=== PATIENT | male | born 1975 | race Caucasian/White ===

== ENCOUNTER 2016-11-30 14:55 | Inpatient (IN) | payer OTHER ==
[2016-11-30] MEDS ORDERED: VALIUM 2 MG TAB2 MG PO (17:36)
[2016-11-30] MEDS ORDERED: MULTI-VITAMIN1 EACH PO (17:37)
[2016-11-30] MEDS ORDERED: VISTARIL25 MG PO (17:38)
[2016-11-30] MEDS ORDERED: REMERON15 M1 PO (17:38)
[2016-11-30] MEDS ORDERED: METFORMIN HCL500 M1 PO (17:38)
[2016-11-30] MEDS ORDERED: BENADRYL25 MG PO (17:39)
[2016-11-30 17:40] LABS: HEMOGLOBIN 12.6 gm/dl (14.0-17.5); RED BLOOD COUNT 4.24 M/UL (4.20-5.50)
[2016-11-30] MEDS ORDERED: PAROXETINE HCL30 MG PO (17:40)
[2016-11-30] MEDS ORDERED: SEROQUEL200 MG PO (17:43)
[2016-11-30] MEDS ORDERED: TOPAMAX50 MG PO (17:44)
[2016-11-30] MEDS ORDERED: TRAZODONE HCL100 MG PO (17:50)
[2016-11-30] MEDS ORDERED: KEPPRA500 MG PO (17:51)
[2016-11-30] MEDS ORDERED: KEPPRA1000 MG PO (17:51)
[2016-11-30] MEDS ORDERED: REQUIP3 MG PO (17:52)
[2016-11-30] MEDS ORDERED: ONFI10 MG PO ×2 (17:53)
[2016-11-30] MEDS ORDERED: ZANTAC 150 MG150 MG PO (17:54)
[2016-11-30] MEDS ORDERED: IBUPROFEN800 MG PO (17:54)
[2016-11-30] MEDS ORDERED: FERROUS SULFAT325 MG PO (17:55)
[2016-11-30 17:56] LABS: BUN/CREATININE RATIO 19 (0-10)
[2016-12-02 06:36] LABS: HEMOGLOBIN 12.7 gm/dl (14.0-17.5); RED BLOOD COUNT 4.34 M/UL (4.20-5.50); WHITE BLOOD COUNT 8.1 K/UL (4.5-11.0)
[2016-12-02 06:46] LABS: BUN/CREATININE RATIO 19 (0-10)
[2016-12-04 04:51] LABS: HEMOGLOBIN 12.9 gm/dl (14.0-17.5); RED BLOOD COUNT 4.39 M/UL (4.20-5.50); WHITE BLOOD COUNT 7.6 K/UL (4.5-11.0)
[2016-12-04 05:18] LABS: BUN/CREATININE RATIO 23 (0-10)
[2016-12-05 04:40] LABS: RED BLOOD COUNT 4.81 M/UL (4.20-5.50); WHITE BLOOD COUNT 8.4 K/UL (4.5-11.0)
[2016-12-05 05:01] LABS: BUN/CREATININE RATIO 14 (0-10)
[2016-12-07 06:41] LABS: HEMOGLOBIN 12.6 gm/dl (14.0-17.5); WHITE BLOOD COUNT 6.3 K/UL (4.5-11.0)
[2016-12-07 06:42] LABS: RED BLOOD COUNT 4.32 M/UL (4.20-5.50)
[2016-12-07 07:29] LABS: BUN/CREATININE RATIO 19 (0-10)
[2016-12-09 14:45] LABS: HEMOGLOBIN 13.3 gm/dl (14.0-17.5); RED BLOOD COUNT 4.49 M/UL (4.20-5.50)
[2016-12-09 15:04] LABS: BUN/CREATININE RATIO 12 (0-10)
[2016-12-10 06:34] LABS: HEMOGLOBIN 13.3 gm/dl (14.0-17.5); RED BLOOD COUNT 4.48 M/UL (4.20-5.50); WHITE BLOOD COUNT 6.2 K/UL (4.5-11.0)
[2016-12-10 06:43] LABS: BUN/CREATININE RATIO 15 (0-10)
[2016-12-11 05:37] LABS: HEMOGLOBIN 13.4 gm/dl (14.0-17.5); RED BLOOD COUNT 4.58 M/UL (4.20-5.50); WHITE BLOOD COUNT 6.4 K/UL (4.5-11.0)
[2016-12-11 06:00] LABS: BUN/CREATININE RATIO 16 (0-10)
[2016-12-13 06:26] LABS: HEMOGLOBIN 12.8 gm/dl (14.0-17.5); RED BLOOD COUNT 4.35 M/UL (4.20-5.50); WHITE BLOOD COUNT 6.7 K/UL (4.5-11.0)
[2016-12-15 07:38] LABS: HEMOGLOBIN 13.6 gm/dl (14.0-17.5); RED BLOOD COUNT 4.65 M/UL (4.20-5.50); WHITE BLOOD COUNT 6.5 K/UL (4.5-11.0)
[2016-12-15 07:52] LABS: BUN/CREATININE RATIO 11 (0-10)
[2016-12-16 07:38] LABS: HEMOGLOBIN 13.3 gm/dl (14.0-17.5); RED BLOOD COUNT 4.53 M/UL (4.20-5.50); WHITE BLOOD COUNT 5.3 K/UL (4.5-11.0)
[2016-12-16 07:54] LABS: BUN/CREATININE RATIO 12 (0-10)
[2016-12-17 07:36] LABS: BUN/CREATININE RATIO 12 (0-10)
[2016-12-18 07:38] LABS: BUN/CREATININE RATIO 13 (0-10)
[2016-12-20 04:55] LABS: HEMOGLOBIN 13.1 gm/dl (14.0-17.5); RED BLOOD COUNT 4.46 M/UL (4.20-5.50); WHITE BLOOD COUNT 4.9 K/UL (4.5-11.0)
[2016-12-20 05:12] LABS: BUN/CREATININE RATIO 13 (0-10)
[2016-12-24 06:03] LABS: HEMOGLOBIN 14.1 gm/dl (14.0-17.5); RED BLOOD COUNT 4.77 M/UL (4.20-5.50); WHITE BLOOD COUNT 5.5 K/UL (4.5-11.0)
[2016-12-24 06:29] LABS: BUN/CREATININE RATIO 11 (0-10)
[2016-12-27 06:02] LABS: RED BLOOD COUNT 4.77 M/UL (4.20-5.50); WHITE BLOOD COUNT 5.6 K/UL (4.5-11.0)
[2016-12-27 06:14] LABS: BUN/CREATININE RATIO 14 (0-10)
[2016-12-29] MEDS ORDERED: COLACE 100MG C100 MG PO (10:13)
== END 2016-12-29 14:39 | disposition home or self-care (01) | DRG 85 ==
LOC: MED SURG 4 14:55
PROVIDERS: Emergency Medicine; Family Medicine; ADMIT Family Medicine
DX: S06.5X0A Traumatic subdural hemorrhage without loss of consciousness, initial encounter (principal); Q04.3 Other reduction deformities of brain; G40.802 Other epilepsy, not intractable, without status epilepticus; E87.2 Acidosis; R41.82 Altered mental status, unspecified; F31.9 Bipolar disorder, unspecified; E11.9 Type 2 diabetes mellitus without complications; F17.210 Nicotine dependence, cigarettes, uncomplicated; W18.30XA Fall on same level, unspecified, initial encounter; Y93.89 Activity, other specified; Y92.480 Sidewalk as the place of occurrence of the external cause; F41.0 Panic disorder [episodic paroxysmal anxiety]; G25.81 Restless legs syndrome; Z91.81 History of falling; F10.21 Alcohol dependence, in remission; H54.41 Blindness, right eye, normal vision left eye; Z99.3 Dependence on wheelchair; Z87.820 Personal history of traumatic brain injury; G47.00 Insomnia, unspecified; Z79.84 Long term (current) use of oral hypoglycemic drugs; Z79.899 Other long term (current) drug therapy
CPT/HCPCS: 36415; 70450; 80048; 80053; 82962; 85027; 85610; 97110; 97116; Q0163; Q0177